=== PATIENT | male | born 1960 | race African-American/Black ===

== ENCOUNTER 2017-06-02 15:45 | Emergency (ER) | payer OTHER ==
[~2017-06-02] VITALS: Ht 172.7 cm; Wt 70.0 kg
[2017-06-02 16:00] VITALS: BP 137/80; PULSE 86; RESP 16; TEMP 98.7; O2SAT 94
--- NOTE | 2017-06-02 16:09 | PD ---
Physical Exam Date Seen by Provider: Jun 02, 2017 Time Seen by Provider: 16:07 Narrative 57 yo male here for alcohol abuse. Found intoxicated by bystanders on a side walk. History of chronic alcohol abuse. History limited as patient is clearly intoxicated. Smells of alcohol. EVAC to triage. Vitals are stable in triage. Awaiting bed placement. Data Data Last Documented VS Vital Signs Date Time Temp Pulse Resp B/P (MAP) Pulse Ox O2 Delivery O2 Flow Rate FiO2 06/02/17 16:00 98.7 86 16 137/80 (99) 94 MDM Medical Record Reviewed: Yes Supervised Visit with SHAYY: No Scripts No Active Prescriptions or Reported Meds Arsen Brown Jun 02, 2017 16:09
--- NOTE | 2017-06-02 19:10 | PD ---
HPI Chief Complaint: Alcohol/Drug Intoxication Time Seen by Provider: 19:03 Travel History International Travel<30 days: No Contact w/Intl Traveler<30days: No Traveled to known affect area: No History of Present Illness HPI 57-year-old male presents to the emergency department by EMS. According to triage note, the patient is here for alcohol intoxication. He was quite intoxicated when he was triaged. That was 3 and half hours ago. The patient is ambulatory with a steady gait upon my examination. He is alert and oriented to person, place, time. He states that he had 2 beers today but denies being intoxicated. Denies any illicit drug use. He does smoke tobacco, approximate 10 cigarettes per day. He states he is here for his neck and back pain that has been ongoing for 2 days. No radiation of pain. Patient denies any trauma. 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 Patient denies any new weakness or syncope. No chest pain or shortness of breath. No abdominal pain. No nausea, vomiting, diarrhea. He has no other complaints at this time. PFSH Past Medical History Cancer: No Cerebrovascular Accident: Yes Diminished Hearing: No Endocrine: No Gastrointestinal Disorders: No Genitourinary: No Hypertension: Yes Immune Disorder: No Inguinal Hernia: Yes (LEFT INTACT, RIGHT REPAIRED) Implanted Vascular Access Dvce: No Musculoskeletal: No Neurologic: Yes (hemorragic stroke) Psychiatric: No Reproductive: No Respiratory: No Past Surgical History Abdominal Surgery: No Cardiac Surgery: No Ear Surgery: No Endocrine Surgery: No Eye Surgery: No Genitourinary Surgery: No Gynecologic Surgery: No Neurologic Surgery: No Oral Surgery: No Thoracic Surgery: No Other Surgery: Yes (HERNIA REPAIR- 4 YEARS AGO) Social History Alcohol Use: Yes (DAILY) Tobacco Use: Yes (SOMETIMES) Substance Use: No Allergies-Medications (Allergen,Severity, Reaction): Coded Allergies: No Known Allergies (Verified , 05/08/15) Reported Meds & Prescriptions Reported Meds & Active Scripts Active No Active Prescriptions or Reported Medications Review of Systems Except as stated in HPI: all other systems reviewed are Neg Physical Exam Narrative GENERAL: Well-nourished, well-developed male patient ambulatory. Afebrile. SKIN: Focused skin assessment warm/dry. HEAD: Normocephalic. Atraumatic. EYES: No scleral icterus. No injection or drainage. NECK: Supple, trachea midline. No JVD or lymphadenopathy. CARDIOVASCULAR: Regular rate and rhythm without murmurs, gallops, or rubs. RESPIRATORY: Breath sounds equal bilaterally. No accessory muscle use. Lungs sounds are clear to auscultation. GASTROINTESTINAL: Abdomen soft, non-tender, nondistended. MUSCULOSKELETAL: No cyanosis, or edema. BACK: Nontender without obvious deformity. No CVA tenderness. Data Data Last Documented VS Vital Signs Date Time Temp Pulse Resp B/P (MAP) Pulse Ox O2 Delivery O2 Flow Rate FiO2 06/02/17 16:00 98.7 86 16 137/80 (99) 94 MDM Medical Decision Making Medical Screen Exam Complete: Yes Emergency Medical Condition: Yes Medical Record Reviewed: Yes Differential Diagnosis Alcohol intoxication versus chronic neck/back pain versus medical clearance Narrative Course 51-year-old male is brought to the emergency department by EMS for evaluation of alcohol intoxication. Upon my examination, the patient is ambulatory, answers all questions appropriately. He states he is here for neck and back pain that started 2 days ago. He appears well my exam. Patient is given ibuprofen 400 mg by mouth for his back and neck pain. Patient is stable for discharge. The patient was discharged in stable condition with instructions, including return instructions and follow up instructions. Diagnosis Primary Impression: Alcohol intoxication Qualified Codes: F10.920 - Alcohol use, unspecified with intoxication, uncomplicated Referrals: [facility] call for appointment Patient Instructions: Alcohol Intoxication (ED), General Instructions Additional Instructions: Follow-up with your primary care physician. Return to the emergency department for any acute worsening of symptoms. Med/Other Pt SpecificInfo: No Change to Meds Scripts No Active Prescriptions or Reported Meds Disposition: 01 DISCHARGE HOME Condition: Stable Hattie Villavicencio SARAY Jun 02, 2017 19:10
[2017-06-02 19:12] VITALS: BP 134/98; PULSE 70; RESP 20; O2SAT 100
[2017-06-02] MEDS ORDERED: IBUPROFEN 400 MG TAB PO ONE (19:15)
== END 2017-06-02 19:32 | disposition home or self-care (01) ==
LOC: NEPD 15:45
DX: F10.920 Alcohol use, unspecified with intoxication, uncomplicated (principal); Y90.9 Presence of alcohol in blood, level not specified
CPT/HCPCS: 99283

== ENCOUNTER 2017-06-12 18:04 | Emergency (ER) | payer OTHER ==
[~2017-06-12] VITALS: Ht 175.3 cm; Wt 22.0 kg
[2017-06-12 18:11] VITALS: BP 155/98; PULSE 77; RESP 20; TEMP 98.4; O2SAT 96
--- NOTE | 2017-06-12 18:52 | PD ---
HPI Chief Complaint: Musculoskeletal Complaint Time Seen by Provider: 18:33 Travel History International Travel<30 days: No Contact w/Intl Traveler<30days: No Traveled to known affect area: No History of Present Illness HPI 57-year-old male presents to the emergency room for evaluation of right shoulder pain for the past 2 days. Patient denies recent trauma or injury. States he woke up with the pain. It is localized to the anterior humeral head with radiation internally. Pain is severe in the right shoulder especially with range of motion. He has not taken anything for symptoms. He has no previous history of right shoulder pain or injury. PFSH Past Medical History Cancer: No Cerebrovascular Accident: Yes Diminished Hearing: No Endocrine: No Gastrointestinal Disorders: No Genitourinary: No Hypertension: Yes Immune Disorder: No Inguinal Hernia: Yes (LEFT INTACT, RIGHT REPAIRED) Implanted Vascular Access Dvce: No Musculoskeletal: No Neurologic: Yes (hemorragic stroke) Psychiatric: No Reproductive: No Respiratory: No Past Surgical History Abdominal Surgery: Yes (HERNIA REPAIR) Cardiac Surgery: No Ear Surgery: No Endocrine Surgery: No Eye Surgery: No Genitourinary Surgery: No Gynecologic Surgery: No Neurologic Surgery: No Oral Surgery: No Thoracic Surgery: No Other Surgery: Yes (HERNIA REPAIR- 4 YEARS AGO) Social History Alcohol Use: Yes (DAILY) Tobacco Use: Yes (1 PPD) Substance Use: No Allergies-Medications (Allergen,Severity, Reaction): Coded Allergies: No Known Allergies (Verified , 06/02/17) Reported Meds & Prescriptions Reported Meds & Active Scripts Active No Active Prescriptions or Reported Medications Review of Systems Except as stated in HPI: all other systems reviewed are Neg Physical Exam Narrative GENERAL: Well-nourished, well-developed male in no acute distress afebrile. Ambulatory. SKIN: Focused skin assessment warm/dry. No erythema or ecchymosis noted. HEAD: Normocephalic. EYES: No scleral icterus. No injection or drainage. NECK: Supple, trachea midline. No JVD or lymphadenopathy. CARDIOVASCULAR: Regular rate and rhythm without murmurs, gallops, or rubs. RESPIRATORY: Breath sounds equal bilaterally. No accessory muscle use. He is slightly noncooperative with exam but reports extreme pain with active range of motion including abduction, and internal rotation, and external rotation. MUSCULOSKELETAL: No cyanosis, or edema. 2+ radial pulse. Radial, ulnar, and median nerves intact. Extremities tenderness to palpation of the anterior humeral head. Patient works upon palpation. Data Data Last Documented VS Vital Signs Date Time Temp Pulse Resp B/P (MAP) Pulse Ox O2 Delivery O2 Flow Rate FiO2 06/12/17 18:11 98.4 77 20 155/98 (117) 96 MDM Medical Decision Making Medical Screen Exam Complete: Yes Emergency Medical Condition: No Medical Record Reviewed: Yes Differential Diagnosis Shoulder arthritis Narrative Course 57-year-old male presents to the emergency room for evaluation of nontraumatic right shoulder pain for the past 2 days. Patient denies injury, woke up with the pain. Right upper extremity is neurovascularly intact with 2+ radial pulse. Radial, ulnar, and median nerves intact. Normal strength in the hand. Patient has extreme tenderness to palpation of the anterior humeral head. No obvious edema or deformity. Extreme pain with any range of motion of the shoulder. Given reproducibility of symptoms, I have very low suspicion for extrinsic causes of pain. Patient likely has tendinitis, inflammatory arthritis , or internal derangement of the shoulder. No indication for emergent imaging at this time. There are no urgent or emergent medical conditions. A medical screening exam was performed: At the time of evaluation the presenting medical condition was determined not to be of an emergent nature. The patient was given the option of receiving additional care, such as x-ray imaging, but declined. Patient was given options for additional community resources from which to obtain care. The Patient Has Been advised to seek medical attention for their presenting complaint. The patient has been advised to return to the ER at any time if an emergent condition develops. Diagnosis Primary Impression: Encounter for medical screening examination Scripts No Active Prescriptions or Reported Meds Disposition: 01 DISCHARGE HOME Condition: Stable Marimar Fontenot Jun 12, 2017 18:52
== END 2017-06-12 18:49 | disposition left against medical advice (07) ==
LOC: NEPK 18:04
DX: M25.511 Pain in right shoulder (principal)
CPT/HCPCS: 99281